=== PATIENT | male | born 1980 | race Caucasian/White ===

== ENCOUNTER 2017-04-12 23:28 | Emergency (ER) | payer MEDICAID ==
[2017-04-12] MEDS ORDERED: KETOROLAC TROMETHAMINE 30 MG/ML SOL ONE (23:41)
[2017-04-12] MEDS ORDERED: CYCLOBENZAPRINE 10 MG TAB PO ONE ×2 (23:42→23:47)
[2017-04-12] MEDS ORDERED: CYCLOBENZAPRINE 10 MG TAB ONE (23:42)
[2017-04-12] MEDS ORDERED: KETOROLAC TROMETHAMINE 30 MG/ML SOL IM ONE ×2 (23:42→23:47)
[2017-04-12 23:46] VITALS: BP 150/96; PULSE 68; RESP 20; TEMP 97.3; O2SAT 100
== END 2017-04-12 23:58 | disposition home or self-care (01) | DRG 563 ==
LOC: ED 23:28
DX: S46.912A Strain of unspecified muscle, fascia and tendon at shoulder and upper arm level, left arm, initial encounter (principal); I10 Essential (primary) hypertension
CPT/HCPCS: 96372; 99282; J1885

== ENCOUNTER 2017-09-06 09:40 | Inpatient (IN) | payer SELFPAY ==
[2017-09-06] MEDS ORDERED: SODIUM CHLORIDE 0.9% 1000ML 1,000 ML IV ONE (10:06)
[2017-09-06] MEDS ORDERED: ONDANSETRON HCL 4 MG/2 ML SOL ONE ×2 (10:07→10:14)
[2017-09-06] MEDS ORDERED: LORAZEPAM 2 MG/ML SOL IV ONE ×2 (10:08→10:53)
[2017-09-06] MEDS ORDERED: ONDANSETRON HCL 4 MG/2 ML SOL IV ONE (10:09)
[2017-09-06] MEDS ORDERED: CLONIDINE 0.1 MG TAB PO ONE ×3 (10:14→10:21)
[2017-09-06] MEDS ORDERED: LORAZEPAM 2 MG/ML SOL ONE ×2 (10:14→10:54)
[2017-09-06] MEDS ORDERED: PROMETHAZINE HYDROCHLORIDE 25 MG/ML SOL IV ONE (10:53)
[2017-09-06] MEDS ORDERED: PROMETHAZINE HYDROCHLORIDE 25 MG/ML SOL ONE (10:54)
[2017-09-06] MEDS ORDERED: DEXTROSE/SALINE 0.9% 1,000 ML IV ONE (11:15)
[2017-09-06 11:57] LABS: BASOPHILS % (AUTO) 1 % (0-3); EOSINOPHILS % (AUTO) 1 % (0-9); HEMATOCRIT 39 % (39-53); HEMOGLOBIN 13.1 gm/dl (13.5-17.7); LYMPHOCYTES % (AUTO) 7.78 % (10-50); MEAN CORPUSCULAR HEMOGLOBIN 33.6 pg (27.0-32.0); MONOCYTES % (AUTO) 3.7 % (0-12); NEUTROPHILS % (AUTO) 87.2 % (37-80)
[2017-09-06 11:58] LABS: MEAN CORPUSCULAR VOLUME 99 fL (80-100)
[2017-09-06 12:00] LABS: ALBUMIN 3.3 gm/dl (3.4-5.0); ALKALINE PHOSPHATASE 66 IU/L (46-116); ALT 36 IU/L (14-63); AMYLASE 74 IU/L (25-115); AST 18 IU/L (15-37); BILIRUBIN,TOTAL 0.7 mg/dl (0.2-1.0); BLOOD UREA NITROGEN 7 mg/dl (7-18); CALCIUM 7.4 mg/dl (8.5-10.1); CARBON DIOXIDE 23.1 mEq/L (21-32); CHLORIDE 104 mMol/L (98-107); CREATININE 0.77 mg/dl (0.80-1.30); GLOM FILT RATE 114 mL/min (>60); GLUCOSE 243 mg/dl (74-106); MAGNESIUM 1.4 mg/dl (1.8-2.4); POTASSIUM 3.8 mMol/L (3.5-5.1); SODIUM 136 mMol/L (136-145)
[2017-09-06 12:02] LABS: ALCOHOL < 0.003 gm/dl (0.000-0.08)
[2017-09-06 12:54] LABS: AMPHETAMINES NEGATIVE (NEGATIVE); BARBITUATES NEGATIVE (NEGATIVE); BENZODIAZEPINES NEGATIVE (NEGATIVE); CANNABINOL(THC) POSITIVE (NEGATIVE); COCAINE(COC) NEGATIVE (NEGATIVE); METHADONE NEGATIVE (NEGATIVE); METHAMPHETAMINES NEGATIVE (NEGATIVE); OPIATES(OP13) NEGATIVE (NEGATIVE); OXYCODONE(OXY) NEGATIVE (NEGATIVE); PROPOXYPHENE(PPX) NEGATIVE (NEGATIVE); TRICYCLIC ANTIDEPRESSANTS NEGATIVE (NEGATIVE)
[2017-09-06] MEDS ORDERED: ONDANSETRON HCL 4 MG/2 ML SOL IV PRN (12:54)
[2017-09-06] MEDS ORDERED: ALUMINUM/MAGNESIUM 30 ML SUS PO PRN (12:54)
[2017-09-06] MEDS ORDERED: DIAZEPAM 5 MG TAB PO PRN (12:54)
[2017-09-06] MEDS ORDERED: DIAZEPAM 5MG/ML SOL IV PRN (12:54)
[2017-09-06] MEDS ORDERED: MAGNESIUM SULFATE 5 GM/10 ML SOL IV ONE (12:59)
[2017-09-06] MEDS: LORAZEPAM 2 MG/ML SOL IV PRN ×4 (13:00→17:45)
[2017-09-06] MEDS ORDERED: PROMETHAZINE HYDROCHLORIDE 25 MG/ML SOL IV PRN (13:00)
[2017-09-06] MEDS: SODIUM CHLORIDE 0.9% 1000ML 1,000 ML IV SCH (13:00)
[2017-09-06] MEDS: SODIUM CHLORIDE 0.9% FLUSH 10 ML SOL IV SCH ×2 (13:00→23:45)
[2017-09-06] MEDS ORDERED: LORAZEPAM 0.5 MG TAB PO PRN (13:09)
[2017-09-06] MEDS ORDERED: MAGNESIUM SULFATE 1 GM/2 ML 2 GM in SODIUM CHLORIDE 0.9% 100 ML 100 ML IV ONE (13:15)
[2017-09-06] MEDS ORDERED: MAGNESIUM SULFATE 5 GM/10 ML SOL ONE (14:42)
[2017-09-06] MEDS ORDERED: HALOPERIDOL LACTATE 5 MG/ML SOL IM ONE (15:31)
[2017-09-06] MEDS ORDERED: DIAZEPAM 5 MG TAB PO ONE (15:31)
[2017-09-06] MEDS ORDERED: PATIENT EDUCATION 1 MISC PRN (21:16)
[2017-09-07] MEDS: SODIUM CHLORIDE 0.9% 1000ML 1,000 ML IV SCH (00:12)
[2017-09-07 04:28] VITALS: BP 129/72; PULSE 61; TEMP 98.8
[2017-09-07 07:41] VITALS: RESP 16; O2SAT 99
[2017-09-07] MEDS ORDERED: MULTIVITAMIN2 1 EA TAB PO SCH (09:00)
[2017-09-07] MEDS ORDERED: THIAMINE 100 MG TAB PO SCH (09:00)
[2017-09-07] MEDS ORDERED: CLONIDINE 0.1 MG TAB PO SCH (09:00)
[2017-09-07] MEDS ORDERED: FOLIC ACID 1 MG TAB PO SCH (09:00)
== END 2017-09-07 07:30 | disposition left against medical advice (07) | DRG 897 ==
LOC: ED 09:40 → UNDOADMIN 12:47 → ACUTE CARE 12:47
PROVIDERS: ADMIT Emergency Medicine; ATTEND Emergency Medicine
DX: F10.239 Alcohol dependence with withdrawal, unspecified (principal)
CPT/HCPCS: 36415; 80053; 80305; 80307; 82150; 83735; 84100; 85025; 94762; 96365; 96366; 96374; 96375; 99222; 99238; 99285; J1630; J2060; J2405; J2550; J3475; A9270-GY